=== PATIENT | male | born 1945 | race Hispanic/Latino ===

== ENCOUNTER → 2018-12-13 | Day surgery (SDC) | payer MEDICARE ==
[2018-12-05 11:36] LABS: BASOPHILS % 0.6 % (0.0-1.0); EOSINOPHILS # (AUTO) 0.3 (0.0-0.4); EOSINOPHILS % 4.1 % (0.0-6.0); HEMATOCRIT 35.5 % (38.2-49.6); HEMOGLOBIN 10.7 g/dL (14.0-18.0); LYMPHOCYTES # (AUTO) 2.1 (1.0-3.2); LYMPHOCYTES % 32.1 % (18.0-39.1); MEAN CORPUSCULAR HEMOGLOBIN 26.4 pg (28-32); MEAN CORPUSCULAR HGB CONC 30.1 g/dL (31-35); MEAN CORPUSCULAR VOLUME 87.7 fL (81-99); MONOCYTES # (AUTO) 0.5 (0.2-0.8); MONOCYTES % 7.8 % (4.4-11.3); NEUTROPHILS # (AUTO) 3.5 (2.1-6.9); NEUTROPHILS % 55.1 % (38.7-80.0); PLATELET COUNT 229 x10e3/uL (140-360); RED BLOOD COUNT 4.05 x10e6/uL (4.3-5.7); RED CELL DISTRIBUTION WIDTH 16.7 % (11.7-14.4)
[~2018-12-13] MED LIST: FENTANYL CITRATE/PF 100MCG/2 ML INJ ONE; FUROSEMIDE40 MG PO; GABAPENTIN100 MG PO; HUMALOG100 UNIT/1 SC; INSULIN REGULAR, HUMAN 100 UNIT/1 ML 3ML VIAL ONE; JANUMET 50-1,01 EACH PO; LANTUS 3ML100 UNITS/ SC; LEVOTHYROXINE50 MCG PO; LISINOPRIL10 MG PO; MIDAZOLAM HCL 2 MG/2 ML VIAL ONE; OMEPRAZOLE40 MG PO; PROPOFOL IV EMULSION 10 MG/ML 50 ML VIAL ONE
--- OUTSIDE RECORDS SUMMARY | 2018-12-13 09:18 | XMS REPORT ---
[facility] Address Unknown Phone Unavailable Care Team Providers Care Terminal Manager Name Role Phone Unavailable Unavailable Payers Payer Name Policy Type Policy Number Effective Date Expiration Date Problems This patient has no known problems. Allergies, Adverse Reactions, Alerts This patient has no known allergies or adverse reactions. Medications This patient has no known medications.
[2018-12-13 13:35] VITALS: BP 101/61
== END | disposition home or self-care (01) ==
LOC: OR 09:16
PROVIDERS: ATTEND Internal Medicine
DX: K29.50 Unspecified chronic gastritis without bleeding (principal); D50.9 Iron deficiency anemia, unspecified; K59.00 Constipation, unspecified; R14.0 Abdominal distension (gaseous); E11.9 Type 2 diabetes mellitus without complications; I10 Essential (primary) hypertension; G47.33 Obstructive sleep apnea (adult) (pediatric); E03.9 Hypothyroidism, unspecified; Z01.810 Encounter for preprocedural cardiovascular examination; Z01.812 Encounter for preprocedural laboratory examination; K62.1 Rectal polyp; K64.0 First degree hemorrhoids; Z79.4 Long term (current) use of insulin; K31.9 Disease of stomach and duodenum, unspecified
CPT/HCPCS: 36415 ×2; 45380; 82948; 85025; 93005; J2250; J2704; 43239; 45384

== ENCOUNTER → 2021-05-11 | Day surgery (SDC) | payer MEDICARE ==
[2021-05-10 09:26] LABS: BASOPHILS # (AUTO) 0.1 (0.0-0.1); BASOPHILS % 0.8 % (0.0-1.0); EOSINOPHILS # (AUTO) 0.4 (0.0-0.4); HEMATOCRIT 37.5 % (38.2-49.6); LYMPHOCYTES % 26.5 % (18.0-39.1); MEAN CORPUSCULAR HEMOGLOBIN 32.6 pg (28-32); MEAN CORPUSCULAR VOLUME 101.9 fL (81-99); MONOCYTES # (AUTO) 0.6 (0.2-0.8); MONOCYTES % 8.6 % (4.4-11.3); NEUTROPHILS # (AUTO) 4.3 (2.1-6.9); NEUTROPHILS % 57.8 % (38.7-80.0); PLATELET COUNT 180 x10e3/uL (140-360); RED BLOOD COUNT 3.68 x10e6/uL (4.3-5.7); RED CELL DISTRIBUTION WIDTH 13.2 % (11.7-14.4)
[2021-05-10 09:47] LABS: ANION GAP 11.8 mmol/L (8-16); CALCIUM 8.5 mg/dL (8.4-10.2); CREATININE, SERUM 1.09 mg/dL (0.72-1.25); POTASSIUM 4.8 mmol/L (3.5-5.1)
[~2021-05-11] MED LIST changes: +ASPIRIN81 MG PO; +BENICAR20 MG PO; -FENTANYL CITRATE/PF 100MCG/2 ML INJ ONE; -INSULIN REGULAR, HUMAN 100 UNIT/1 ML 3ML VIAL ONE; +LANTUS 3ML100 UNITS/ SQ; -MIDAZOLAM HCL 2 MG/2 ML VIAL ONE; +NAPROXEN250 MG PO; +NOVOLOG100 UNIT/1 SC; -PROPOFOL IV EMULSION 10 MG/ML 50 ML VIAL ONE; +SIMVASTATIN40 MG PO; +SODIUM CHLORIDE 0.9% 50ML 50 ML ONE
[2021-05-11 09:30] VITALS: BP 133/63
== END | disposition home or self-care (01) ==
LOC: OR 05:16
PROVIDERS: ATTEND Specialist
DX: G56.01 Carpal tunnel syndrome, right upper limb (principal); I10 Essential (primary) hypertension; E11.9 Type 2 diabetes mellitus without complications; E78.00 Pure hypercholesterolemia, unspecified; Z01.810 Encounter for preprocedural cardiovascular examination; Z01.812 Encounter for preprocedural laboratory examination; Z01.818 Encounter for other preprocedural examination; Z79.82 Long term (current) use of aspirin; Z79.4 Long term (current) use of insulin; Z68.35 Body mass index [BMI] 35.0-35.9, adult; Z87.891 Personal history of nicotine dependence
CPT/HCPCS: 29848; 36415 ×2; 71046; 80048; 82948; 85025; 93005; J0690